=== PATIENT | male | born 1965 ===

== ENCOUNTER 2017-10-08 10:33 | Day surgery (SDC) | payer MEDICAID ==
[2017-10-08] MEDS ORDERED: BUPIVACAINE 0.25% 30 ML SDV ONE (10:41)
[2017-10-08] MEDS ORDERED: LIDOCAINE 1% 2 ML INJ ID PRN (10:54)
[2017-10-08] MEDS ORDERED: LR 1,000 ML IV ONE (10:54)
[2017-10-08] MEDS ORDERED: cefOXitin SODIUM 2 GM in STERILE WATER INJ 21 ML IV ONE (12:13)
--- NOTE | 2017-10-08 12:14 | PDHPUP ---
History & Physical Update H&P update statement: This history and physical update is based on an assessment of the patient which was completed after admission or registration (within 24 hours), but prior to the surgery/procedure. H&P update: H&P reviewed & patient examined, no change in patient's condition since H&P completed
[2017-10-08] MEDS ORDERED: PROPOFOL/EMULSION 500 MG/50 ML BOTTLE IV ONE (12:17)
[2017-10-08] MEDS ORDERED: MIDAZOLAM 2 MG/2 ML VIAL ONE (12:17)
[2017-10-08] MEDS ORDERED: fentaNYL 100 MCG/2 ML INJ ONE ×3 (12:18→14:16)
[2017-10-08] MEDS ORDERED: MIDAZOLAM 2 MG/2 ML VIAL IVP ONE (13:18)
[2017-10-08] MEDS ORDERED: LR 500 ML IV PRN (13:21)
[2017-10-08] MEDS ORDERED: ACETAMINOPHEN 500 MG TAB PO PRN (13:21)
[2017-10-08] MEDS ORDERED: HYDROmorphONE/DILAUDID 2 MG/ML INJ IVP PRN (13:21)
[2017-10-08] MEDS ORDERED: OXYCODONE/APAP 5/325 TAB PO PRN (13:21)
[2017-10-08] MEDS ORDERED: DEXAMETHASONE 4 MG/ML VIAL IVP PRN (13:21)
[2017-10-08] MEDS ORDERED: ONDANSETRON 4 MG/2 ML VIAL IVP PRN (13:21)
[2017-10-08] MEDS ORDERED: LABETALOL HCL 5 MG/ML 20 ML MDV IVP PRN (13:21)
[2017-10-08] MEDS ORDERED: HYDROCODONE/APAP 5/325 TAB PO PRN (13:21)
[2017-10-08] MEDS ORDERED: NALOXONE HCL 0.4 MG/ML INJ IVP PRN (13:21)
[2017-10-08] MEDS ORDERED: ALBUTEROL 3 ML DEYVIAL IH PRN (13:21)
--- NOTE | 2017-10-08 13:21 | PDANEPAE ---
ANE History of Present Illness 52 year old male for hemorrhoidectomy. History of depression. Otherwise healthy. ANE Past Medical History - Cardiovascular History Hx Hypertension: No Hx Arrhythmias: No Hx Chest Pain: No Hx Coronary Artery / Peripheral Vascular Disease: Yes Hx CHF / Valvular Disease: No Hx Palpitations: No - Pulmonary History Hx COPD: No Hx Asthma/Reactive Airway Disease: No Hx Recent Upper Respiratory Infection: No Hx Oxygen in Use at Home: No Hx Sleep Apnea: No Sleep Apnea Screening Result - Last Documented: Negative - Neurologic History Hx Cerebrovascular Accident: No Hx Seizures: No Hx Dementia: No - Endocrine History Hx Diabetes: No - Renal History Hx Renal Disorders: No - Liver History Hx Hepatic Disorders: No - Neurological & Psychiatric Hx Hx Neurological and Psychiatric Disorders: Yes Neurological / Psychiatric History Comment: occ back pain- tx w/stretching - Cancer History Hx Cancer: No - Congenital Disorder History Hx Congenital Disorders: No - GI History Hx Gastrointestinal Disorders: Yes Gastrointestinal History Comment: rectal prolapse x 5 yrs, constipation, intermittent bright red blood in stool. - Other Health History Other Health History: "nose allergies past 3 mos". Moved from [place] ~ 3 mos ago. - Chronic Pain History Chronic Pain: Yes (rectum) - Surgical History Prior Surgeries: R shoulder -dislocation x2 ANE Review of Systems Review of systems is: negative Review of Systems: - Exercise capacity METS (RN): 5 METS ANE Patient History - Allergies Allergies/Adverse Reactions: No Known Allergies Allergy (Unverified 10/06/17 11:17) - Home Medications Home Medications: Effexor Xr 75MG (*) 10/06/17 [Last Taken 10/08/17 07:00] Preparation H 10/06/17 [Last Taken 10/07/17] Psyllium Husk 10/06/17 [Last Taken 10/06/17] - NPO status NPO Since - Liquids (Date): 10/08/17 NPO Since - Liquids (Time): 08:30 NPO Since - Solids (Date): 10/07/17 NPO Since - Solids (Time): 20:00 - Smoking Hx Smoking Status: Never smoked - Family Anes Hx Family Hx Anesthesia Complications: none ANE Labs/Vital Signs - Vital Signs Blood Pressure: 127/73 Heart Rate: 74 Respiratory Rate: 16 O2 Sat (%): 96 Height: 170.18 cm Weight: 65.771 kg ANE Physical Exam - Airway Neck exam: FROM Mallampati Score: Class 2 - Pulmonary Pulmonary: no respiratory distress - Cardiovascular Cardiovascular: regular rate and rhythym - ASA Status ASA Status: I ANE Anesthesia Plan Anesthesia Plan: GA w LMA
[2017-10-08] MEDS ORDERED: PROPOFOL 200 MG/20 ML VIAL ONE (13:31)
--- NOTE | 2017-10-08 14:08 | POSTOPPROG ---
Post Op Note Date of Operation: 10/08/17 Surgeon: Jesus Blanco Anesthesiologist: Dr. Eason Anesthesia: LMA Pre-op Diagnosis: Hemorrhoids/prolapse Post-op Diagnosis: same Procedure: PPH Inf/Abcess present in the surg proc area at time of surgery?: No EBL: Minimal
[2017-10-08] MEDS: fentaNYL 100 MCG/2 ML INJ IVP PRN ×2 (14:19→14:51)
[2017-10-08 15:12] VITALS: PULSE 82
[2017-10-08 15:16] VITALS: TEMP 95.7
[2017-10-08 15:29] VITALS: RESP 12
[2017-10-08 16:12] VITALS: BP 119/83; O2SAT 95
--- NOTE | 2017-10-08 17:52 | GOP ---
[f rep st] OPERATIVE REPORT DATE OF OPERATION: 10/08/2017 SURGEON: Earl Blanco MD ANESTHESIA: Laryngeal mask anesthesia. ANESTHESIOLOGIST: Swati Eason MD. PREOPERATIVE DIAGNOSIS: Severe internal hemorrhoids with partial prolapse. POSTOPERATIVE DIAGNOSIS: Severe internal hemorrhoids with partial prolapse. PROCEDURE PERFORMED: 1. Rectal exam under anesthesia. 2. Stapled hemorrhoidectomy. FINDINGS: Patient had multiple severe internal hemorrhoids with partial prolapse. No discrete masses were identified. ESTIMATED BLOOD LOSS: 20 cc. INDICATIONS: A 52-year-old male with a history of significant internal hemorrhoids. Risks and benefits of the procedure were discussed with the patient, questions were answered. He wished to proceed. DESCRIPTION OF PROCEDURE: Patient in supine position initially. After induction of adequate laryngeal mask anesthesia, the patient was moved to modified lithotomy position. He was then prepped and draped in standard surgical fashion. The anus was serially dilated. An anoscope was inserted. The anus and distal rectum were examined. Multiple hemorrhoids and partial prolapse were noted, but no evidence of discrete masses identified. The PPH device was opened and the retractor placed with the obturator. Obturator was removed and the retractor was sutured in place using 3-0 nylon in an interrupted fashion. The secondary obturator was placed. This was used to place a pursestring suture of 3-0 PDS approximately 6 cm above the dentate line. A continuous pursestring suture was placed, taking bites of mucosa. Once the complete circumferential pursestring was placed, the area was palpated and the distance of 6 cm was confirmed. No other lesions were identified. The PPH device was inserted and the pursestring suture tightened therein. The device was then closed and fired. The device was removed and the specimen removed. This is an approximately 3 cm thick swath of rectal mucosa. It was sent for permanent section. The area was inspected and cauterized for hemostasis. One area of bleeding was oversewn using 3-0 chromic in a figure-of- eight fashion. Once again, the area was inspected and good hemostasis was then noted. The area was thoroughly irrigated and aspirated. Half percent Marcaine was injected throughout the area for local anesthesia. After ensuring hemostasis, a packing of Xeroform and Gelfoam was placed. This was sutured to the ABD pad used for external dressing. The patient was then returned to supine position, extubated. He is taken to PACU in stable condition. COMPLICATION: None. DRAINS: Include packing. /[id number]/MODL MTDD
== END 2017-10-08 16:25 | disposition home or self-care (01) ==
LOC: FSGY 10:33
PROVIDERS: ATTEND Surgery
PROC: 0D7Q7ZZ Dilation of Anus, Via Natural or Artificial Opening (ICD-10-PCS; principal; 2017-10-08 12:00)
PROC: 0DQP8ZZ Repair Rectum, Via Natural or Artificial Opening Endoscopic (ICD-10-PCS; principal; 2017-10-08 12:00)
DX: K64.3 Fourth degree hemorrhoids (principal); K62.3 Rectal prolapse
CPT/HCPCS: J0694; J2250; J2704; J3010

== ENCOUNTER 2018-11-21 19:41 | Emergency (ER) | payer MEDICAID, OTHER ==
--- NOTE | 2018-11-21 19:57 | EDPHY ---
H & P Stated Complaint: N/V since this afternoon, denies pain, ETOH, MJ, 150BG - Personal History Current Tetanus/Diphtheria Vaccine: Unsure Current Tetanus Diphtheria and Acellular Pertussis (TDAP): Unsure - Medical/Surgical History Hx Asthma: No Hx Chronic Respiratory Disease: No Hx Diabetes: No Hx Cardiac Disease: No Hx Renal Disease: No Hx Cirrhosis: No Hx Alcoholism: No Hx HIV/AIDS: No Hx Splenectomy or Spleen Trauma: No Other PMH: Depression, R shoulder sx - Social History Smoking Status: Never smoked Time Seen by Provider: 11/21/18 19:53 HPI/ROS: CHIEF COMPLAINT: 1. Nausea and dizziness 2. "I am at my wit's end" HISTORY OF PRESENT ILLNESS: This is a 53-year-old male comes to the emergency department stating that he has nausea. He states that he feels somewhat lightheaded and dizzy. He arrived by ambulance and was given Zofran 4 mg IV EN route. He has not vomited since arriving in the department. When I enter the room he was on the floor next to the bed holding cup as if he might vomit. At that point he told me that he had been drinking during the day and had consumed at least a 6 pack and a shot. He next stated that he is at his "wit's and". He says that he is having trouble at home with his . He is not currently working. He is taking Effexor for depression. He was seeing a private psychologist the but is concerned because of the expense. He does not feel that it has been effective. He has been thinking of hurting himself but states that he is unlikely to do so because he has 3 daughters. REVIEW OF SYSTEMS: A ten system review of systems was performed and is negative with the exception of the items mentioned in the HPI. Past medical history: Depression Social history: He lives with his . He has 3 daughters. He tells me that he is not working. In the past he has worked in [employer]. He does not use tobacco products. He denies daily alcohol use. He smokes marijuana. General Appearance: Alert. Vital signs reviewed. On the floor next to the bed Eyes: Pupils equal and round, no conjunctival injection, no discharge. Anicteric. ENT, Mouth: Mucous membranes are slightly dry, no oropharyngeal erythema or edema. Neck: No lymphadenopathy, supple. Respiratory: Lungs are clear to auscultation; no wheezes, rales, or rhonchi. Cardiovascular: Regular rate and rhythm; no murmur, rub, or gallop. Gastrointestinal: Abdomen is soft and nontender, no masses or organomegaly, bowel sounds normal. Skin: Warm and dry, no rashes on exposed skin, normal color. Back: Nontender to palpation over the thoracolumbar spine. No CVAT. Extremities: No lower extremity edema, no calf tenderness or swelling. Neurological: Alert and oriented. Moving all four extremities easily and equally. Psychiatric: Flat affect. (Mikayla Murdock) Constitutional: Initial Vital Signs Heart Rate 85 11/21/18 19:45 Respiratory Rate 20 11/21/18 19:45 Blood Pressure 122/75 H 11/21/18 19:45 O2 Sat (%) 100 11/21/18 19:45 O2 Delivery Mode Room Air Allergies/Adverse Reactions: No Known Allergies Allergy (Unverified 11/21/18 19:44) Home Medications: Medication Instructions Recorded Effexor Xr 75MG (*) 10/06/17 Medical Decision Making ED Course/Re-evaluation: 53-year-old male with a history of depression who admits to drinking alcohol during the day. He tells me that he has been thinking of hurting himself. He was placed on a 72 hr mental health hold. Blood work and urinalysis were performed. He was medically cleared for mental health evaluation. Of alcohol levels 121. Urine tox screen is positive for marijuana. Mental health evaluation was performed in it is thought that he is unlikely to need hospitalization. However it is recommended that he remain in the emergency department overnight and be re-evaluated in the morning. His care will be transferred to Dr. Campos at change of shift. (Mikayla Murdock) Differential Diagnosis: I considered a differential diagnosis that includes but is not limited to suicidality, homicidality, psychosis, depression, diogo, effect of intoxicants or stimulants, thyroid disorder. (Mikayla Murdock) Other Provider: [address] Murdock pending mental health re-evaluation morning. 0700 patient signed out to Dr. Fatima pending mental health re-evaluation. ( Matias Campos) 7:30 a.m. patient has been re-evaluated by mental health. He denies suicidality. He contracts for safety. He will follow up with [facility] as an outpatient. He is not having withdrawal symptoms. They have lifted his M1 hold and recommend discharge. (Refugio Fatima) - Data Points Laboratory Results: Laboratory Results 11/21/18 19:49 11/21/18 19:49 Medications Given: Discontinued Medications Sodium Chloride (Ns) 1,000 mls @ 0 mls/hr IV EDNOW ONE; Wide Open PRN Reason: Protocol Stop: 11/21/18 20:26 Last Admin: 11/21/18 20:30 Dose: 1,000 mls Lorazepam (Ativan Injection) 1 mg IVP EDNOW ONE Stop: 11/21/18 20:26 Last Admin: 11/21/18 20:30 Dose: 1 mg Ondansetron HCl (Zofran) 4 mg IVP EDNOW ONE Stop: 11/21/18 20:26 Last Admin: 11/21/18 20:30 Dose: 4 mg Departure - Departure Disposition: Home, Routine, Self-Care Clinical Impression: Alcohol intoxication Qualifiers: Complication of substance-induced condition: uncomplicated Qualified Code(s): F10.920 - Alcohol use, unspecified with intoxication, uncomplicated Depression Qualifiers: Depression Type: other depression Qualified Code(s): F32.89 - Other specified depressive episodes Condition: Fair Instructions: Depression (ED), Alcohol Intoxication (ED) Referrals: [facility],. [Clinic] - As per Instructions
[2018-11-21] MEDS ORDERED: LORazepam 2 MG/ML INJ IVP ONE (20:25)
[2018-11-21] MEDS ORDERED: ONDANSETRON 4 MG/2 ML VIAL IVP ONE (20:25)
[2018-11-21] MEDS ORDERED: NS 1,000 ML IV ONE (20:25)
[2018-11-21 20:32] LABS: PLATELET COUNT 341 10^3/uL (150-400)
[2018-11-22 07:50] VITALS: BP 109/78
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
--- NOTE | 2018-11-22 08:18 | ASMTTCLDSP ---
TLC Discharge Disposition Disposition: Answers: Discharge If Answers: Yes DISCHARGED: Patient/family given suicide hotline info & SAMHSA brochure? Disposition Notes: Notes: Pt stated commitment or ability to keep self safe, denied thoughts of self harm or harm to others. Pt expressed a desire to f/u with [facility] for counseling. Pt was given local hotline information and SAMH[facility] brochure After an Attempt and encouraged to follow up with [facility]. Discharge Concerns/Recommendations: Notes: In consultation with [facility] ED physician, Refugio Fatima MD, Dr. Fatima concurred that pt does not appear to meet 27-65 criteria requiring psychiatric hospitalization as pt does not appear to be an imminent risk of harm to self/others/gravely disabled due to a mental illness condition. Dr. Fatima provided telephone order read back vacating M1 hold at 0730 hrs. Was patient given the Answers: Not applicable Inpatient Behavioral Health Prohibited Belongings List while in the ED? Psychiatrist vacating M1 Refugio Fatima MD Hold: Date and time M1 hold 11/22/2018 07:30 AM vacated (time format is hh:mm): Type of Hold: Answers: M1/72-hour Hold Hold initiated by: Answers: ED Physician Date Signed: 11/22/2018 08:17 AM Electronically Signed By:Noe Allison
== END 2018-11-22 07:50 | disposition home or self-care (01) ==
LOC: EDUNIT#
DX: F10.920 Alcohol use, unspecified with intoxication, uncomplicated (principal); F32.89 Other specified depressive episodes; E86.9 Volume depletion, unspecified
CPT/HCPCS: 80305; 96374; G0480; J2060; J2405